=== PATIENT | female | born 1995 | race Caucasian/White ===

== ENCOUNTER 2016-08-09 13:58 | Emergency (ER) | payer SELFPAY ==
[~2016-08-09] VITALS: Ht 170.2 cm; Wt 65.0 kg
[~2016-08-09 13:58] MED LIST: DEPO400I IM; MEDR4PAK3 PO
[2016-08-09 13:59] VITALS: BP 125/73; PULSE 93; RESP 15; TEMP 98.4; O2SAT 98
[2016-08-09] MEDS ORDERED: AMOX500C PO (14:15)
--- NOTE | 2016-08-09 14:16 | PD ---
HPI Chief Complaint: ENT Complaint Time Seen by Provider: 14:14 Travel History International Travel<30 days: No Contact w/Intl Traveler<30days: No Traveled to known affect area: No History of Present Illness HPI 21-year-old female presents to emergency Department with complaint of sinus congestion and cough times one week. Reports facial pressure. Reports onset of left-sided ear pain yesterday. It also blew her nose last night and felt like she ruptured her eardrum. Denies drainage from the ear. Reports muffled hearing; left worse than right. Denies fever, vomiting. Denies sore throat. Has taken Goody powder with good relief of her pain. Allergies to codeine and sulfa. Has no other medical complaints. No other modifying factors or associated signs and symptoms. PFSH Past Medical History Asthma: Yes Immunizations Current: Yes ?: Not Social History Alcohol Use: No Tobacco Use: No Substance Use: No Allergies-Medications (Allergen,Severity, Reaction): Coded Allergies: Codeine (Verified Allergy, Severe, Nausea/Vomiting, 08/09/16) Sulfa (Unverified Allergy, Severe, Chills, 08/09/16) Reported Meds & Prescriptions Reported Meds & Active Scripts Active Amoxicillin 500 Mg Cap 500 Mg PO BID 10 Days Reported Depo-Provera (Medroxyprogesterone Acetate) 400 Mg/Ml Inj 400 Mg IM Q90D Review of Systems Except as stated in HPI: all other systems reviewed are Neg Physical Exam Narrative GENERAL: Well-nourished, well-developed female patient, in no acute distress; afebrile, nontoxic-appearing SKIN: Warm and dry. No rash. HEAD: Atraumatic. Normocephalic. Frontal and maxillary tenderness sinus on palpation. EYES: Pupils equal and round at 3 mm with brisk reaction. No scleral icterus. No injection or drainage. PERRLA. ENT: Mucosa pink and moist. Oropharynx without erythema, exudates, tonsillar edema.. No uvular edema. No uvular, palatal, or tonsillar deviation. Airway patent. EARS: Bilateral pinnae and external canals appear within normal limits. Left tympanic membrane is with erythema, dullness, loss of landmarks; without perforation. Right tympanic membranes without erythema, dullness or perforation. NECK: Trachea midline. No lymphadenopathy. CARDIOVASCULAR: Regular rate and rhythm. No murmur appreciated. RESPIRATORY: No accessory muscle use. Clear to auscultation. Breath sounds equal bilaterally. GASTROINTESTINAL: Abdomen soft, non-tender, nondistended. Hepatic and splenic margins not palpable. Bowel sounds are active 4 quadrants. MUSCULOSKELETAL: No obvious deformities. No clubbing. No cyanosis. No edema. NEUROLOGICAL: Awake and alert. Oriented 3. No obvious cranial nerve deficits. Motor grossly within normal limits. Normal speech. Moves all extremities. 5/5 strength to all extremities. PSYCHIATRIC: Appropriate mood and affect; insight and judgment normal. Data Data Last Documented VS Vital Signs Date Time Temp Pulse Resp B/P Pulse Ox O2 Delivery O2 Flow Rate FiO2 08/09/16 13:59 98.4 93 15 125/73 98 MDM Medical Decision Making Medical Screen Exam Complete: Yes Emergency Medical Condition: Yes Medical Record Reviewed: Yes Differential Diagnosis Sinusitis, otitis media, eardrum perforation, URI Narrative Course 21-year-old female with this equal exam consistent with left otitis media. Recommendation is afebrile and nontoxic-appearing. Amoxicillin prescribed for home. Patient verbalizes understanding and agreement with treatment plan. Patient is medically cleared and stable for discharge. Discussed reasons to return to the emergency department. Instructed patient to follow up with primary care provider. Patient agrees with treatment plan. The patients vital signs are stable and the patient is stable for outpatient follow-up and treatment. Patient discharged home, stable and in no acute distress. Diagnosis Primary Impression: Left otitis media Qualified Code: H66.92 - Left otitis media, unspecified chronicity, unspecified otitis media type Referrals: Primary Care Physician Patient Instructions: General Instructions, Otitis Media (ED) Departure Forms: Tests/Procedures, Work Release Enter return to work date: August 10, 2016 Additional Instructions: Antibiotics as prescribed and complete full course Ibuprofen or Tylenol as instructed and as needed for fever/pain [id number] cough and cold medications as directed and as needed for symptom management Get plenty of sleep/rest Drink plenty of fluids to prevent dehydration; popsicles and Gatorade Use an air humidifier/turn off ceiling fans Follow-up with primary care provider Return immediately to the emergency department with worsening of symptoms Med/Other Pt SpecificInfo: Prescription(s) given Scripts Amoxicillin 500 Mg [id number] Mg PO BID 10 Days Ref 0 Prov:Stephy Cristobal [employer] REPRESENT[employer]IV[employer] DIRECTOR 08/09/16 Disposition: 01 DISCHARGE HOME Condition: Stable Stephy Cristobal August 09, 2016 14:16
== END 2016-08-09 14:31 | disposition home or self-care (01) ==
LOC: NEPK 13:58
DX: H66.92 Otitis media, unspecified, left ear (principal); J45.909 Unspecified asthma, uncomplicated
CPT/HCPCS: 99283